=== PATIENT | female | born 1960 | race Caucasian/White ===

== ENCOUNTER → 2016-11-12 | Outpatient (REF) ==
--- NOTE | 2016-11-12 16:53 | REP ---
RIGHT KNEE, FIVE VIEWS: HISTORY: Degenerative joint disease. There is no acute fracture or dislocation. There is an old fracture of the lateral right patella versus a bipartite patella. Calcification is present posterior to the knee joint. This represents ligamentous or tendon calcification. IMPRESSION: There is no acute fracture or dislocation. Signed by Eric Kirk MD 11/12/2016 05:18 P
--- NOTE | 2016-11-12 16:53 | REP ---
PARTIAL LUMBAR SPINE, THREE VIEWS: HISTORY: Degenerative disc disease. There is no acute fracture. The L2-3 through L5-S1 intervertebral discs are decreased in height consistent with disc degeneration. Osteophytes are present on L2 through L4. There are 7 mm of grade 1 spondylolisthesis of L4 on L5. IMPRESSION: Degenerative change as described above. Signed by Eric Kirk MD 11/12/2016 05:18 P
== END ==
LOC: M SMT 14:45
PROVIDERS: ATTEND Internal Medicine
DX: M54.5 Low back pain (principal); M25.561 Pain in right knee